=== PATIENT | male | born 1955 | race Caucasian/White ===

== ENCOUNTER 2018-05-22 08:43 | Day surgery (SDC) ==
[2018-05-22] MEDS: BETADINE OPTH PREP OP PRN ×2 (09:45→10:08)
[2018-05-22] MEDS: TETRACAINE 0.5% UNIT-DOSE OP PRN ×2 (09:45→10:08)
[2018-05-22] MEDS: CYCLOGYL 2% OPTH OP PRN ×3 (09:46→09:56)
[2018-05-22] MEDS ORDERED: BRIMONIDINE TARTRATE 0.2% OPTH SOL OP PRN (09:48)
[2018-05-22] MEDS ORDERED: DEX-MOXI-KETOR OPTH INJ 1/0.5/0.4 MG/ML IO ONE (09:48)
[2018-05-22] MEDS ORDERED: BSS WITH EPINEPHRINE OP ONE (09:48)
[2018-05-22] MEDS ORDERED: ZOFRAN 4 MG/2 ML IVP ONE (09:48)
[2018-05-22] MEDS ORDERED: LIDOCAINE 1%/PHENYLEPHRINE 1.5% BSS (SURGERY) INTRAOCULA ONE (09:48)
[2018-05-22] MEDS ORDERED: LIDOCAINE 1% 20 ML MDV ID STA (09:48)
[2018-05-22 09:54] VITALS: TEMP 97.6
[2018-05-22] MEDS ORDERED: SUBLIMAZE ONE (10:17)
[2018-05-22] MEDS ORDERED: ZOFRAN 4 MG/2 ML ONE (10:17)
[2018-05-22] MEDS ORDERED: VERSED ONE (10:17)
[2018-05-22 16:16] VITALS: BP 121/65
== END 2018-05-22 11:10 | disposition home or self-care (01) ==
LOC: SURG 08:43
PROVIDERS: ATTEND Ophthalmology
DX: H25.812 Combined forms of age-related cataract, left eye (principal)